=== PATIENT | male | born 1950 | race Caucasian/White ===

== ENCOUNTER 2017-07-30 11:14 | Emergency (ER) | payer OTHER ==
[~2017-07-30] VITALS: Ht 177.8 cm; Wt 68.0 kg
[2017-07-30 11:17] VITALS: BP 123/86; PULSE 70; RESP 14; TEMP 98; O2SAT 97
[2017-07-30] MEDS ORDERED: SODIUM CHLOR 0.9% 1000 ML INJ 1,000 ML IV SCH (13:03)
[2017-07-30] MEDS ORDERED: ONDANSETRON HCL 4 MG/2 ML VIAL IVP ONE (13:15)
[2017-07-30] MEDS ORDERED: SODIUM CHLORIDE 0.9% FLUSH 10 ML FLUSH IV FLUSH PRN (13:15)
--- NOTE | 2017-07-30 13:23 | PD ---
HPI Chief Complaint: Abdominal Pain Time Seen by Provider: 12:56 Travel History International Travel<30 days: No Contact w/Intl Traveler<30days: No Traveled to known affect area: No History of Present Illness HPI 66-year-old male presents to the emergency department for evaluation of left- sided abdominal pain, vomiting, constipation. Patient states for the past month , he has had intermittent left abdominal pain, constipation, vomiting. However , yesterday his symptoms worsened. He states that he is having 7/10 left-sided abdominal pain, aching and occasionally sharp without radiation. He also reports profuse vomiting that started yesterday and worsened today. Patient states that he saw his surgeon, Dr. Perez recently who did see a blood test which looked okay. He was going to have a CT abdomen/pelvis done outpatient, but has not yet had it done. He has a history of colon cancer. He had proctosigmoidectomy with low pelvic anastomosis on January 08, 2015. Patient states that since surgery, he normally has 4-5 bowel movements daily, but has not had a bowel movement the past 2 days. He did take an [id number] laxatives without improvement. Patient denies any fevers or chills. No chest pain or shortness of breath. Patient states he does not currently take any prescribed medications. Patient does state he drinks 1-2 alcoholic beverages daily. Moderate severity. No exacerbating or alleviating factors. PFSH Past Medical History Arthritis: No Asthma: No Autoimmune Disease: No Blood Disorders: No Heart Rhythm Problems: No Cancer: Yes (colon) Cardiovascular Problems: Yes (IRREGULAR HEART RATE PREVIOUS) High Cholesterol: No Chemotherapy: No Chest Pain: No Congestive Heart Failure: No COPD: No Cerebrovascular Accident: No Diabetes: No Diminished Hearing: No Endocrine: No Gastrointestinal Disorders: Yes (COLON CA) GERD: No Glaucoma: No Genitourinary: Yes (HEP C) Headaches: No Hepatitis: Yes (HX NOW GONE ) Hiatal Hernia: No Hypertension: No Immune Disorder: No Kidney Stones: No Musculoskeletal: No Neurologic: No Psychiatric: No Reproductive: No Respiratory: No Migraines: No Myocardial Infarction: No Radiation Therapy: No Renal Failure: No Seizures: No Sleep Apnea: No Thyroid Disease: No Ulcer: No Past Surgical History Abdominal Surgery: No AICD: No Appendectomy: No Arteriovenous Shunt: No Cardiac Surgery: No Cholecystectomy: No Ear Surgery: No Endocrine Surgery: No Eye Surgery: No Genitourinary Surgery: No Gynecologic Surgery: No Insulin Pump: No Joint Replacement: No Oral Surgery: Yes (TONSILECTOMY) Pacemaker: No Thoracic Surgery: No Other Surgery: Yes (colorectal surgery ) Social History Alcohol Use: No (occ) Tobacco Use: Yes (QUit) Substance Use: No Allergies-Medications (Allergen,Severity, Reaction): Coded Allergies: No Known Allergies (Verified Adverse Reaction, Unknown, 07/30/17) Reported Meds & Prescriptions Reported Meds & Active Scripts Active No Active Prescriptions or Reported Medications Review of Systems Except as stated in HPI: all other systems reviewed are Neg Physical Exam Narrative GENERAL: Well-nourished, well-developed male patient, afebrile. SKIN: Focused skin assessment warm/dry. HEAD: Normocephalic. Atraumatic. EYES: No scleral icterus. No injection or drainage. NECK: Supple, trachea midline. No JVD or lymphadenopathy. CARDIOVASCULAR: Regular rate and rhythm without murmurs, gallops, or rubs. RESPIRATORY: Breath sounds equal bilaterally. No accessory muscle use. Lungs sounds are clear to auscultation. GASTROINTESTINAL: Abdomen soft and nondistended. Patient has large lower scar. He has tenderness to palpation around the scar as well as the left upper quadrant of the abdomen. MUSCULOSKELETAL: No cyanosis, or edema. BACK: Nontender without obvious deformity. No CVA tenderness. Data Data Last Documented VS Vital Signs Date Time Temp Pulse Resp B/P (MAP) Pulse Ox O2 Delivery O2 Flow Rate FiO2 07/30/17 13:36 (98) Room Air 07/30/17 11:17 98.0 70 14 97 Orders Orders Complete Blood Count With Diff (07/30/17 13:03) Comprehensive Metabolic Panel (07/30/17 13:03) Lipase (07/30/17 13:03) Prothrombin Time / Inr (Pt) (07/30/17 13:03) Act Partial Throm Time (Ptt) (07/30/17 13:03) Urinalysis - C+S If Indicated (07/30/17 13:03) Ct Abd/Pel W Iv Contrast(Rout) (07/30/17 13:03) Iv Access Insert/Monitor (07/30/17 13:03) Ecg Monitoring (07/30/17 13:03) Oximetry (07/30/17 13:03) Ondansetron Inj (Zofran Inj) (07/30/17 13:15) Sodium Chlor 0.9% 1000 Ml Inj (Ns 1000 M (07/30/17 13:03) Sodium Chloride 0.9% Flush (Ns Flush) (07/30/17 13:15) Electrocardiogram (07/30/17 13:03) Diatrizoate Liq (Md Coyne Liq) (07/30/17 13:41) Diatrizoate Liq (Md Coyne Liq) (07/30/17 13:42) Iohexol 350 Inj (Omnipaque 350 Inj) (07/30/17 14:30) Labs Laboratory Tests Test 07/30/17 13:21 07/30/17 13:40 White Blood Count 10.8 TH/MM3 Red Blood Count 4.66 MIL/MM3 Hemoglobin 15.2 GM/DL Hematocrit 43.5 % Mean Corpuscular Volume 93.4 FL Mean Corpuscular Hemoglobin 32.7 PG Mean Corpuscular Hemoglobin Concent 35.1 % Red Cell Distribution Width 12.5 % Platelet Count 259 TH/MM3 Mean Platelet Volume 6.9 FL Neutrophils (%) (Auto) 81.7 % Lymphocytes (%) (Auto) 11.6 % Monocytes (%) (Auto) 5.0 % Eosinophils (%) (Auto) 1.2 % Basophils (%) (Auto) 0.5 % Neutrophils # (Auto) 8.8 TH/MM3 Lymphocytes # (Auto) 1.3 TH/MM3 Monocytes # (Auto) 0.5 TH/MM3 Eosinophils # (Auto) 0.1 TH/MM3 Basophils # (Auto) 0.1 TH/MM3 CBC Comment DIFF FINAL Differential Comment Prothrombin Time 10.6 SEC Prothromb Time International Ratio 1.0 RATIO Activated Partial Thromboplast Time 25.9 SEC Blood Urea Nitrogen 10 MG/DL Creatinine 0.74 MG/DL Random Glucose 90 MG/DL Total Protein 7.0 GM/DL Albumin 3.9 GM/DL Calcium Level 8.9 MG/DL Alkaline Phosphatase 46 U/L Aspartate Amino Transf (AST/SGOT) 16 U/L Alanine Aminotransferase (ALT/SGPT) 17 U/L Total Bilirubin 0.7 MG/DL Sodium Level 138 MEQ/L Potassium Level 4.0 MEQ/L Chloride Level 106 MEQ/L Carbon Dioxide Level 24.7 MEQ/L Anion Gap 7 MEQ/L Estimat Glomerular Filtration Rate 106 ML/MIN Lipase 117 U/L Urine Color YELLOW Urine Turbidity CLEAR Urine pH 7.0 Urine Specific Gary 1.010 Urine Protein NEG mg/dL Urine Glucose (UA) NEG mg/dL Urine Ketones 10 mg/dL Urine Occult Blood TRACE Urine Nitrite NEG Urine Bilirubin NEG Urine Urobilinogen LESS THAN 2.0 MG/DL Urine Leukocyte Esterase TRACE Urine RBC 1 /hpf Urine WBC 3 /hpf Urine Squamous Epithelial Cells <1 /hpf Urine Bacteria RARE /hpf Urine Mucus FEW /lpf Microscopic Urinalysis Comment CULT NOT INDICATED MDM Medical Decision Making Medical Screen Exam Complete: Yes Emergency Medical Condition: Yes Medical Record Reviewed: Yes Interpretation(s) Last Impressions Abdomen/Pelvis CT 07/30/17 1303 Signed Impressions: Service Date/Time: Tuesday, July 30, 2017 14:29 - CONCLUSION: 1. Nonspecific bowel gas pattern with multiple loops of proximal small bowel which are borderline dilated with air-fluid levels. The distal small bowel and colon are unremarkable in appearance. The differential diagnosis includes focal ileus. Early small bowel obstruction is less likely. 2. Hepatic steatosis. 3. Unremarkable gallbladder. Romulo Us MD Differential Diagnosis Bowel obstruction versus diverticulitis versus pancreatitis versus mass Narrative Course 66-year-old male presents to the emergency department for evaluation of vomiting , constipation, abdominal pain. He does have history of proctosigmoidectomy and colon cancer. His physician is Dr. Perez. EKG, CBC, CMP, lipase, PTT, PT/ INR, UA are ordered and pending. CT abdomen/pelvis with by mouth and IV contrast is ordered and pending. Patient declines pain medication at this time. He is given normal saline 1 L IV, Zofran 4 mg IV. EKG shows sinus bradycardia, heart rate 55, no acute ST changes. CBC shows no acute abnormality. CMP is unremarkable. Lipase is 117. Coags are unremarkable. UA shows 10 ketones, trace occult blood, trace leukocyte esterase , rare bacteria. CT abdomen/pelvis shows Nonspecific bowel gas pattern with multiple loops of proximal small bowel which are borderline dilated with air- fluid levels. The distal small bowel and colon are unremarkable in appearance. The differential diagnosis includes focal ileus. Early small bowel obstruction is less likely; Hepatic steatosis; Unremarkable gallbladder. Upon examination, patient states he feels much better. He states he has had a bowel movement since being in the emergency department had no further episodes of vomiting. I discussed results with CT scan with the patient. The patient states that he will call Dr. Perez on Tuesday in follow-up. He'll be discharged prescription for Zofran for nausea. He verbalizes agreement. He is to return here if symptoms worsen or he can have a bowel movement. He agrees. I discussed the case with my attending physician, Dr. Ayala, who agrees with plan and disposition. Diagnosis Primary Impression: Ileus Referrals: Alton Perez MD 2 days Patient Instructions: General Instructions, Ileus (ED) Additional Instructions: Take Zofran as instructed as needed for nausea/vomiting. Drink plenty of fluids. Follow-up with Dr. Perez on Tuesday. Return to the emergency department if you have any worsening symptoms or unable to have a bowel movement. Med/Other Pt SpecificInfo: Prescription(s) given Scripts Ondansetron Odt (Ondansetron Odt) 4 Mg Tab 4 MG SL Q6HR Y for Nausea/Vomiting, #16 TAB 0 Refills Prov: Alethea Hodge 07/30/17 Disposition: DISCHARGE HOME Condition: Stable Alethea Hodge Jul 30, 2017 13:23
[2017-07-30] MEDS ORDERED: DIATRIZOATE MEGLUM/DIATRIZOATE SOD 9 ML CUP ONE ×2 (13:41→13:42)
[2017-07-30 13:50] LABS: AUTOMATED NEUTROPHIL # 8.8 TH/MM3 (1.8-7.7); BASOPHIL # 0.1 TH/MM3 (0-0.2); BASOPHIL % 0.5 % (0.0-2.0); EOSINOPHIL # 0.1 TH/MM3 (0-0.4); EOSINOPHIL % 1.2 % (0.0-4.0); HEMATOCRIT 43.5 % (39.0-51.0); HEMOGLOBIN 15.2 GM/DL (13.0-17.0); LYMPH % 11.6 % (9.0-44.0); LYMPHOCYTE # 1.3 TH/MM3 (1.0-4.8); MEAN CELL VOLUME 93.4 FL (80.0-100.0); MEAN CORPUSCULAR HEMOGLOBIN 32.7 PG (27.0-34.0); MEAN CORPUSCULAR HGB CONC 35.1 % (32.0-36.0); MEAN PLATELET VOLUME 6.9 FL (7.0-11.0); MONOCYTE # 0.5 TH/MM3 (0-0.9); NEUT % 81.7 % (16.0-70.0); PLATELET COUNT 259 TH/MM3 (150-450); RED BLOOD COUNT 4.66 MIL/MM3 (4.50-5.90); RED CELL DISTRIBUTION WIDTH 12.5 % (11.6-17.2); WHITE BLOOD COUNT 10.8 TH/MM3 (4.0-11.0)
[2017-07-30 14:00] LABS: PROTHROMBIN TIME - PATIENT 10.6 SEC (9.8-11.6)
[2017-07-30 14:08] LABS: ALBUMIN 3.9 GM/DL (3.4-5.0); ALT (GPT) 17 U/L (12-78); AST (GOT) 16 U/L (15-37); BICARBONATE 24.7 MEQ/L (21.0-32.0); BLOOD UREA NITROGEN 10 MG/DL (7-18); CALCIUM 8.9 MG/DL (8.5-10.1); CHLORIDE 106 MEQ/L (98-107); CREATININE 0.74 MG/DL (0.60-1.30); GLOMERULAR FILTRATION RATE 106 ML/MIN (>89); GLUCOSE,RANDOM 90 MG/DL (74-106); LIPASE 117 U/L (73-393); SODIUM (NA) 138 MEQ/L (136-145)
[2017-07-30 14:11] LABS: ALKALINE PHOSPHATASE 46 U/L (45-117); TOTAL BILIRUBIN ADULT 0.7 MG/DL (0.2-1.0)
[2017-07-30 14:16] LABS: BACTERIA, URINE RARE /hpf; BILIRUBIN, URINE NEG (NEG); BLOOD, URINE TRACE (NEG); GLUCOSE,URINE NEG (NEG); KETONE, URINE 10 mg/dL (NEG); MUCUS URINE FEW /lpf (OCC); NITRITE,URINE NEG (NEG); SQUAMOUS EPITHELIAL CELL URINE <1 /hpf (0-5); URINE COLOR YELLOW (YELLW/STRAW); URINE LEUKOCYTE ESTERASE TRACE (NEG)
[2017-07-30] MEDS ORDERED: IOHEXOL 350 MG/ML 10 ML VIAL (for RAD DIAG) IVCONTRAST ONE (14:30)
--- NOTE | 2017-07-30 14:52 | RADRPT ---
EXAM DATE/TIME: 07/30/2017 14:29 [facility] COMPARISON: No previous studies available for comparison. INDICATIONS : Left lower abdomen pain for one month. IV CONTRAST: 70 cc Omnipaque 350 (iohexol) IV ORAL CONTRAST: Prescribed oral contrast ingested. RADIATION DOSE: 6.33 CTDIvol (mGy) MEDICAL HISTORY : Carcinoma, colon. Cardiovascular disease SURGICAL HISTORY : colectomy ENCOUNTER: Initial ACUITY: 1 month PAIN SCALE: 7/10 LOCATION: Left lower quadrant TECHNIQUE: Volumetric scanning of the abdomen and pelvis was performed. Using automated exposure control and ad justment of the mA and/or kV according to patient size, radiation dose was kept as low as reasonably achievable to obtain optimal diagnostic quality images. DICOM format image data is available electro nically for review and comparison. FINDINGS: LOWER LUNGS: The visualized lower lungs are clear. LIVER: Homogeneous density without lesion. There is no dilation of the biliary tree. No calcified gallston es. There is mild hepatic steatosis. SPLEEN: Normal size without lesion. PANCREAS: Within normal limits. KIDNEYS: Normal in size and shape. There is no mass, stone or hydronephrosis. ADRENAL GLANDS: Within normal limits. VASCULAR: There is no aortic aneurysm. BOWEL/MESENTERY: The stomach is mildly distended with dilute contrast. There are multiple loops of borderline prominen ce proximal and mid small bowel with multiple air-fluid levels. These measure up to 3.3 cm in diamete r. The distal small bowel and colon are normal caliber. No distinct transition zone is identified. Th ere is no free air or fluid. ABDOMINAL WALL: Within normal limits. RETROPERITONEUM: There is no lymphadenopathy. BLADDER: No wall thickening or mass. REPRODUCTIVE: Within normal limits. INGUINAL: There is no lymphadenopathy or hernia. MUSCULOSKELETAL: Within normal limits for patient age. CONCLUSION: 1. Nonspecific bowel gas pattern with multiple loops of proximal small bowel which are borderline dil ated with air-fluid levels. The distal small bowel and colon are unremarkable in appearance. The diff erential diagnosis includes focal ileus. Early small bowel obstruction is less likely. 2. Hepatic steatosis. 3. Unremarkable gallbladder. Romulo Us MD on July 30, 2017 at 14:43 Board Certified Radiologist. This report was verified electronically.
[2017-07-30] MEDS ORDERED: ONDA4TAB7 SL (15:21)
--- NOTE | 2017-07-31 17:16 | EKG ---
Date Performed: 07/30/2017 Time Performed: 13:39:35 PTAGE: 66 years EKG: SINUS BRADYCARDIA BORDERLINE ECG PREVIOUS TRACING : 01/08/2015 10.37 DOCTOR: Russel Graves Interpretating Date/Time 07/31/2017 17:15:21
== END 2017-07-30 15:33 | disposition home or self-care (01) ==
LOC: NEPC 11:14
DX: K56.7 Ileus, unspecified (principal); R00.1 Bradycardia, unspecified; R94.31 Abnormal electrocardiogram [ECG] [EKG]; Z98.890 Other specified postprocedural states; Z85.038 Personal history of other malignant neoplasm of large intestine; Z86.79 Personal history of other diseases of the circulatory system; Z87.891 Personal history of nicotine dependence
CPT/HCPCS: 74177; 80053; 81001; 83690; 85025; 85610; 85730; 93005; 96374; 99285; J2405; J7030; Q9963; Q9967

== ENCOUNTER 2018-03-31 13:30 | Inpatient (IN) ==
[2018-03-31] MEDS ORDERED: Chlorhexidine Gluconate 2% 1 Pack (2 Cloths) TOPICAL ONE (14:08)
[2018-03-31] MEDS ORDERED: Metoprolol Tartrate 25 MG Tablet PO ONE (14:08)
--- NOTE | 2018-03-31 14:41 | P.HPUP ---
The Pre-Admit History and Physical Examination regarding the above named patient was reviewed (including, but not limited to, vital signs, heart, lungs, co-morbid conditions), and upon re-examination it is noted that: the patient's condition has not significantly changed since the last examination.
[2018-03-31 14:44] LABS: Baso # (Auto) 0.1 th/mm3 (0.0-0.2); Baso % (Auto) 1.1 % (0.0-2.0); Eos # (Auto) 0.3 th/mm3 (0.0-0.4); Eos % (Auto) 5.3 % (0.0-4.0); Hematocrit 41.5 % (39.0-51.0); Hemoglobin 14.2 gm/dL (13.0-17.0); Lymph # (Auto) 1.7 th/mm3 (1.0-4.8); Lymph % (Auto) 27.7 % (9.0-44.0); Mean Corpuscular HGB Conc 34.3 % (32.0-36.0); Mean Corpuscular Volume 93.4 fL (80.0-100.0); Mean Platelet Volume 6.7 fL (7.0-11.0); Mono # (Auto) 0.4 th/mm3 (0.0-0.9); Neut # (Auto) 3.6 th/mm3 (1.8-7.7); Neut % (Auto) 59.9 % (16.0-70.0); Platelet Count 279 th/mm3 (150-450); Red Blood Count 4.45 mil/mm3 (4.50-5.90); Red Cell Distribution Width 12.9 % (11.6-17.2)
[2018-03-31] MEDS: Dextrose 5%/NaCl 0.9% Inj 1,000 ML IV.CONT SCH ×2 (14:46→22:51)
[2018-03-31] MEDS ORDERED: Sodium Chlor 0.9% Inj 500 ML IV.SIG SCH (15:00)
[2018-03-31] MEDS ORDERED: Ketorolac Inj 30 MG/ML (IVP) Vial IV.PUSH ONE (16:18)
[2018-03-31] MEDS ORDERED: Glycopyrrolate Inj 1 MG/5 ML Syringe IV.PUSH ONE (16:18)
[2018-03-31] MEDS ORDERED: Succinylcholine Inj 100 MG/5 ML Syringe IV.PUSH ONE (16:18)
[2018-03-31] MEDS ORDERED: Lidocaine PF 1% Inj 5 ML Syringe INFILTRATN ONE (16:18)
[2018-03-31] MEDS ORDERED: Neostigmine Inj 5 MG/5 ML Syringe IV.PUSH ONE (16:18)
[2018-03-31] MEDS ORDERED: Acetaminophen 325 MG Tablet PO PRN (18:01)
[2018-03-31] MEDS ORDERED: Potassium Chlor 40 mEq Premix 40 MEQ/100 ML PIGGYBACK IV.SIG PRN (18:01)
[2018-03-31] MEDS ORDERED: Potassium Chlor 20 mEq Premix 20 MEQ/100 ML PIGGYBACK IV.SIG PRN (18:01)
[2018-03-31] MEDS ORDERED: Ketorolac Inj 30 MG/ML (IVP) Vial IV.PUSH PRN (18:01)
[2018-03-31] MEDS ORDERED: fentaNYL Citrate Inj 100 MCG/2 ML Ampul ONE (18:06)
[2018-03-31] MEDS ORDERED: KCL 20 mEq/D5W/NaCl 0.9% Inj 1,000 ML ONE (18:17)
[2018-03-31] MEDS ORDERED: *morphine SULFATE 4 MG/ML PERIprocedure ONLY ONE ×2 (18:18→18:49)
[2018-03-31] MEDS ORDERED: *Ondansetron Inj 4 MG/2 ML Vial PERIprocedural Use ONLY ONE (18:49)
[2018-03-31] MEDS ORDERED: Naloxone Inj 0.4 MG/ML Vial IV.PUSH PRN (19:22)
[2018-03-31] MEDS: KCL 20 mEq/D5W/NaCl 0.9% Inj 1,000 ML IV.CONT SCH (20:39)
[2018-04-01] MEDS: Morphine Inj 30 MG/30 ML PCA.VIAL PCA PRN ×2 (00:11→21:54)
[2018-04-01] MEDS: KCL 20 mEq/D5W/NaCl 0.9% Inj 1,000 ML IV.CONT SCH ×2 (02:48→17:30)
[2018-04-01] MEDS: Dextrose 5%/NaCl 0.9% Inj 1,000 ML IV.CONT SCH ×3 (05:25→21:21)
[2018-04-01 08:21] LABS: Baso % (Auto) 0.2 % (0.0-2.0); Hematocrit 35.7 % (39.0-51.0); Hemoglobin 12.1 gm/dL (13.0-17.0); Lymph # (Auto) 0.7 th/mm3 (1.0-4.8); Lymph % (Auto) 5.3 % (9.0-44.0); Mean Corpuscular HGB Conc 33.9 % (32.0-36.0); Mean Corpuscular Hemoglobin 32.4 pg (27.0-34.0); Mean Corpuscular Volume 95.7 fL (80.0-100.0); Mean Platelet Volume 7.1 fL (7.0-11.0); Mono # (Auto) 0.5 th/mm3 (0.0-0.9); Neut # (Auto) 11.6 th/mm3 (1.8-7.7); Neut % (Auto) 90.5 % (16.0-70.0); Platelet Count 228 th/mm3 (150-450); Red Blood Count 3.73 mil/mm3 (4.50-5.90); Red Cell Distribution Width 12.4 % (11.6-17.2); White Blood Count 12.8 th/mm3 (4.0-11.0)
[2018-04-01 08:43] LABS: Blood Urea Nitrogen 10 mg/dL (7-18)
[2018-04-01] MEDS: Pantoprazole Inj 40 MG Vial IV.PUSH SCH (09:01)
[2018-04-01 10:08] LABS: Anion Gap 8 meq/L (5-15); Calcium 7.3 mg/dL (8.5-10.1); Carbon Dioxide 20.9 meq/L (21.0-32.0); Chloride 111 meq/L (98-107); Glomerular Filtration Rate Greater Than 89 mL/min (>89); Sodium 140 meq/L (136-145)
[2018-04-01 10:10] LABS: Glucose,Random 167 mg/dL (74-106)
[2018-04-02] MEDS: Dextrose 5%/NaCl 0.9% Inj 1,000 ML IV.CONT SCH ×4 (04:19→23:44)
[2018-04-02 04:25] LABS: Baso % (Auto) 0.3 % (0.0-2.0); Eos # (Auto) 0.3 th/mm3 (0.0-0.4); Eos % (Auto) 2.7 % (0.0-4.0); Hematocrit 38.2 % (39.0-51.0); Hemoglobin 13.3 gm/dL (13.0-17.0); Lymph # (Auto) 0.8 th/mm3 (1.0-4.8); Lymph % (Auto) 7.1 % (9.0-44.0); Mean Corpuscular HGB Conc 34.9 % (32.0-36.0); Mean Corpuscular Hemoglobin 32.4 pg (27.0-34.0); Mean Corpuscular Volume 92.7 fL (80.0-100.0); Mean Platelet Volume 6.8 fL (7.0-11.0); Mono # (Auto) 0.7 th/mm3 (0.0-0.9); Mono % (Auto) 6.5 % (0.0-8.0); Neut # (Auto) 9.2 th/mm3 (1.8-7.7); Neut % (Auto) 83.4 % (16.0-70.0); Platelet Count 243 th/mm3 (150-450); Red Blood Count 4.12 mil/mm3 (4.50-5.90); Red Cell Distribution Width 12.7 % (11.6-17.2)
[2018-04-02 04:48] LABS: Anion Gap 10 meq/L (5-15); Blood Urea Nitrogen 5 mg/dL (7-18); Calcium 7.5 mg/dL (8.5-10.1); Carbon Dioxide 24.3 meq/L (21.0-32.0); Chloride 107 meq/L (98-107); Glomerular Filtration Rate Greater Than 89 mL/min (>89); Glucose,Random 132 mg/dL (74-106); Potassium 3.9 meq/L (3.5-5.1); Sodium 141 meq/L (136-145)
[2018-04-02] MEDS: Pantoprazole Inj 40 MG Vial IV.PUSH SCH (09:05)
[2018-04-03] MEDS: Dextrose 5%/NaCl 0.9% Inj 1,000 ML IV.CONT SCH (07:55)
--- NOTE | 2018-04-03 08:22 | MP ---
cc: Alton Perez MD DATE OF OPERATION: 03/31/2018 PREOPERATIVE DIAGNOSES: 1. Recurrent small bowel obstructions. 2. Abnormal CT scan, possible small bowel tumor. 3. History of colon cancer. PROCEDURE: Exploratory laparotomy with lysis of adhesions and segmental small bowel resection. POSTOPERATIVE DIAGNOSIS: 1. Apple core lesion of the mid small bowel. 2. History of colon cancer. SURGEON: Alton Perez MD. MARKETING WRITER: Ector Duncan MD. DESCRIPTION OF PROCEDURE: The patient was placed in the supine position. After adequate general anesthesia, his abdomen was prepped with Betadine solution and draped in the usual sterile fashion. With Dr. Duncan's assistance, the abdomen was opened through an infraumbilical transverse incision, dividing the rectus muscles with electrocautery. Exploration revealed several areas in the peritoneal cavity that appeared to be hard and fibrotic. These were sent off for biopsy and showed only scar and fibrosis. The small bowel was quite densely adherent to itself throughout the abdominal cavity and quite a lengthy time was necessary to free up the adhesions. In the mid small bowel there did appear to be an area of tumor mass partially obstructing the lumen of the bowel with proximal dilatation of the small bowel. The remainder of the small bowel was run very carefully and no other lesions or abnormalities were noted. The liver was free of all palpable masses. The gallbladder was unremarkable. The stomach and duodenum were normal. The colon was palpated and felt to be pretty normal. After freeing up the multiple loops of small bowel around the tumor, a point proximal and distal to the tumor were chosen. Avascular plane created in the mesentery and the bowel divided using the MIGUEL A stapling device at both proximal and distal margins. The intervening mesentery was then progressively taken between Kellys, obtaining hemostasis with Vicryl ties. Bowel continuity was restored by firing the MIGUEL A stapler across antimesenteric ends of the bowel, closing the enterotomy with a TA 60 stapler. Mesenteric defect closed with a running Vicryl suture and a 3-0 Vicryl crotch suture was placed as well. The bowel replaced into the abdominal cavity. Abdomen was irrigated copiously with normal saline. Adequate hemostasis achieved at all sites. The transverse incision was closed anatomically in 2 layers using #1 PDS sutures to reapproximate the respective fascial layers. The subcutaneous tissues were irrigated copiously and the skin closed with a running subcuticular Vicryl suture. Wound area washed with normal saline and dried. Sterile dressing of Telfa and gauze applied. The patient tolerated the procedure quite well and was brought to the recovery room in stable condition. Sponge and needle counts were correct at the end of the procedure. MD JOSE ALBERTO Oliver/dulce , 08:08 AM , 08:15 AM
[2018-04-03] MEDS: Pantoprazole Inj 40 MG Vial IV.PUSH SCH (08:43)
[2018-04-03 14:31] VITALS: RESP 16
[2018-04-03 18:07] VITALS: BP 136/85; PULSE 70; TEMP 97.8; O2SAT 97
--- NOTE | 2018-04-03 18:38 | P.PNCS ---
Subjective Colorectal Surgery Post Op Day #: 3 Interval history: afebrile, VSS UO good arianna PO +BM Objective Result Diagrams: 04/02/18 03:54 04/02/18 03:54 Objective Remarks: PE Alert Abd - soft, wound slightly indurated, min tympany Assessment and Plan - Plan Imp: adv diet Decr IVF DC STONEWORKING SANDER DC plans
--- NOTE | 2018-04-18 11:00 | MD ---
cc: Alton Perez MD, Kashyao MD DATE OF DISCHARGE: 04/03/2018 ADMITTING DIAGNOSIS: Possible carcinoma of the small bowel. PROCEDURES: 03/31/2018: Exploratory laparotomy with lysis of adhesions and segmental small bowel resection. DISCHARGE DIAGNOSES: 1. 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 2. History of colon cancer. HISTORY OF PRESENT ILLNESS: Mr. Mullins is a 67-year-old male who had a colon resection for cancer about 2-1/2 years ago. The patient has been worked up now for about 6 months for episodes of abdominal pain, cramping in nature, consistent with a partial bowel obstruction. He has had several CAT scans and a small bowel series without any particular diagnosis. The patient was recently taken to surgery a couple weeks ago for a diagnostic laparoscopy, at which time he had lysis of adhesions, but no evidence of any intraabdominal cancer or other bowel obstruction. After that procedure, he continued to have some crampy abdominal pain and episodes of nausea, vomiting. Recent CAT scanning showed what appeared to be an apple-core lesion in the small bowel with partial obstruction. He was therefore admitted at this time for definitive exploratory laparotomy and possible small bowel resection. He has had colonoscopies which have not shown any colonic obstruction or new tumor development. PAST MEDICAL HISTORY: Please see his history and physical for more complete past medical and surgical history. PERTINENT PHYSICAL: GENERAL: Very pleasant, well-developed male in no acute distress. ABDOMEN: Abdomen was very soft and doughy, not distended. Normal bowel sounds. All incisions well healed. No rebound or guarding. No masses. RECTAL: Anal inspection revealed benign canal. Digital exam revealed good tone with no masses or tenderness or blood on the finger. HOSPITAL COURSE: After admission, the patient was taken to the operating room on 03/31/2018, at which point he underwent an exploratory laparotomy, lysis of adhesions and segmental small bowel resection. He was found to have an apple-core lesion of the mid jejunum. He underwent a segmental resection and primary anastomosis. No evidence of metastatic disease was noted, but there were some enlarged lymph nodes along the small bowel mesentery. The patient tolerated the procedure quite well, being stabilized in the progressive care unit. His GI tract function returned quite promptly and his diet was advanced accordingly. He was able to eat with little difficulty and his bowel function returned. He was able to ambulate, weaned off his IV fluids and considered ready for discharge home on 04/03/2018 PATHOLOGY: Final pathology report revealed a moderate to poorly differentiated adenocarcinoma of the small bowel invading through the muscularis propria. Four lymph nodes were examined and felt to be unremarkable. Final stage: T3N0M0. DISCHARGE INSTRUCTIONS: The patient was discharged eating a regular diet. He was encouraged to ambulate daily, avoiding any heavy lifting or straining. All preop medications were to be resumed. DISCHARGE MEDICATIONS: The patient was given a prescription for postop pain relief for his acute pain syndrome. He will be seen in the office in 1 weeks' time for routine followup. Any problems prior to his scheduled office visit, the patient was encouraged to call for more urgent attention. MD JOSE ALBERTO Oliver/carey , 10:45 PM , 10:54 PM
== END 2018-04-03 20:33 | disposition home or self-care (01) ==
LOC: HSDI 13:30 → HCPC 19:14 → N07 04-02 16:57
PROVIDERS: ADMIT Colon & Rectal Surgery; ATTEND Colon & Rectal Surgery